=== PATIENT | female | born 1990 | race Caucasian/White ===

== ENCOUNTER → 2017-05-03 | Outpatient (CLI) | payer BC ==
--- NOTE | 2017-05-03 20:33 | DIAGNOSTIC IMAGING REPORT ---
PROCEDURE: US OB 1ST TRIMESTER W/TRANSVAG INDICATION: Cramping. Bleeding. HCG 8538 TECHNIQUE: Corey scale, color, and spectral Doppler transabdominal and endovaginal sonographic images of the first trimester gravid uterus were obtained. COMPARISON: None. FINDINGS: TRANSABDOMINAL SCANS: Uterus is of normal size (7.5 x 6.5 x 4.5 cm). Kidneys are normal (right 12.1 cm, left 11.0 cm). TRANSVAGINAL SCANS: Endometrial thickness is normal (6 mm). No evidence of intrauterine gestational sac. Right ovary is mildly prominent (3.8 cm) with a 2.5 cm partially collapsed right ovarian cyst. This is associated with a small amount of adjacent proteinaceous fluid. Left ovary is of normal size (3.3 cm) with a a 1.8 cm cyst. IMPRESSION: 1. No evidence of intrauterine gestational sac. 2. There is a with a 2.5 cm partially collapsed cyst, with a small amount of adjacent proteinaceous fluid. 3. In view of the patient's elevated hCG level (8538), there is significant concern for ectopic . However, an evolving miscarriage (with diminishing hCG level) is also a possibility. Correlation with hCG levels is recommended. 4. Findings discussed with the patient and called to Dr. Miguel Galindo.
== END ==
LOC: US SRH 16:50 → LAB SRH 16:50 → US SRH 17:00
DX: O20.0 Threatened abortion (principal)
CPT/HCPCS: 90074; 90197

== ENCOUNTER 2017-05-10 12:03 | Outpatient (CLI) | payer BC | END 2017-05-10 23:00 | LOC: LAB SRH 12:03 | DX: O20.0 Threatened abortion (principal) | CPT/HCPCS: 90074; 90197 ==

== ENCOUNTER 2017-05-16 10:47 | Outpatient (CLI) | payer BC | END 2017-05-16 23:00 | LOC: LAB SRH 10:47 | DX: O03.9 Complete or unspecified spontaneous abortion without complication (principal) | CPT/HCPCS: 90074; 90197 ==